=== PATIENT | female | born 1985 | race Caucasian/White ===

== ENCOUNTER 2018-11-08 09:34 | Emergency (ER) | payer BC ==
[2018-11-08 10:10] VITALS: BP 109/84
[2018-11-08 10:44] LABS: Influenza A Molecular POSITIVE (Negative)
--- NOTE | 2018-11-08 10:58 | UC ---
UC General HPI - HPI Summary HPI Summary: per triage, c/o bilateral ear discomfort, congestion, white spot in throat that started Tuesday. Concerned for strep and flu. + fever, headache and body aches at onset. this is day 4. - History of Current Complaint Chief Complaint: UCRespiratory Stated Complaint: ST,RESPIRATORY Time Seen by Provider: 11/08/18 10:49 Hx Obtained From: Patient Hx Last Menstrual Period: unknown Onset/Duration: Gradual Onset Pain Intensity: 3 Associated Signs & Symptoms: Negative: Chest Pain, SOB - Allergy/Home Medications Allergies/Adverse Reactions: Allergies Allergy/AdvReac Type Severity Reaction Status Date / Time pistachio Allergy GI Upset Uncoded 11/08/18 10:04 Home Medications: Home Medications Dm/PE/Acetaminophen/Chlorphenr [[place] Plus Cold &] 2 cap PO BID PRN 11/08 [History Confirmed 11/08/18] guaiFENesin ER TAB [Mucinex*] 600 mg PO BID PRN 11/08/18 [History Confirmed 03/21] PMH/Surg Hx/FS Hx/Imm Hx Previously Healthy: Yes - Surgical History Surgical History: Yes Surgery Procedure, Year, and Place: lasex - Family History Known Family History: Positive: Non-Contributory - Social History Occupation: Employed Full-time Lives: With Family Alcohol Use: Occasionally Substance Use Type: None Smoking Status (MU): Never Smoked Tobacco - Immunization History Most Recent Influenza Vaccination: n/a Most Recent Tetanus Shot: 03/12/15 Most Recent Pneumonia Vaccination: n/a Review of Systems All Other Systems Reviewed And Are Negative: Yes Skin: Positive: Negative Eyes: Positive: Negative Respiratory: Positive: Negative Cardiovascular: Positive: Negative Gastrointestinal: Positive: Negative Genitourinary: Positive: Negative Motor: Positive: Negative Neurovascular: Positive: Negative Musculoskeletal: Positive: Myalgia Neurological: Positive: Negative Psychological: Positive: Negative Is Patient Immunocompromised?: No Physical Exam Triage Information Reviewed: Yes Appearance: Well-Appearing Vital Signs: Initial Vital Signs Temp 97.8 F 11/08/18 10:06 Pulse 88 11/08/18 10:06 Resp 15 11/08/18 10:06 BP 109/84 11/08/18 10:06 Pulse Ox 99 11/08/18 10:06 Vital Signs Reviewed: Yes Eyes: Positive: Conjunctiva Clear ENT: Positive: Pharyngeal erythema - SLIGHT, Nasal congestion, Nasal drainage - CLEAR, TMs normal, Uvula midline. Negative: Trismus, Muffled voice, Hoarse voice Neck: Positive: Supple, Nontender, No Lymphadenopathy Respiratory: Positive: Lungs clear, Normal breath sounds, No respiratory distress Cardiovascular: Positive: RRR, No Murmur Abdomen Description: Positive: Nontender, No Organomegaly, Soft Bowel Sounds: Positive: Present Musculoskeletal: Positive: ROM Intact Neurological: Positive: Alert Psychological: Positive: Age Appropriate Behavior Skin Exam: Normal Diagnostics - Laboratory Diagnostic Studies Completed/Ordered: RAPID STREP=NEGATIVE. RAPID FLU=A POSITIVE Course/Dx - Diagnoses Provider Diagnosis: Influenza A Discharge - Sign-Out/Discharge Documenting (check all that apply): Patient Departure All imaging exams completed and their final reports reviewed: No Studies - Discharge Plan Condition: Stable Disposition: HOME Patient Education Materials: Influenza (ED) Forms: *Work Release Referrals: LIZET De Leon [Medical Doctor] - If Needed Additional Instructions: FOLLOW UP PRIMARY CARE IF NOT BETTER IN 5-7 DAYS OR SOONER IF WORSE. - Billing Disposition and Condition Condition: STABLE Disposition: Home
== END 2018-11-08 11:05 | disposition home or self-care (01) ==
LOC: UCCORT 09:34
DX: J10.1 Influenza due to other identified influenza virus with other respiratory manifestations (principal); Z91.018 Allergy to other foods
CPT/HCPCS: 87651; 99211; G0463